=== PATIENT | male | born 1965 | race Caucasian/White ===

== ENCOUNTER 2021-05-28 10:05 | Inpatient (IN) | payer OTHER ==
[~2021-05-28] VITALS: Ht 185.4 cm; Wt 86.2 kg
--- NOTE | 2021-05-28 10:28 | NUR ---
PT NOTES REGULAR CHECKUP AT THE PCP SENT OVER FOR ELEVATED WBC. PT DENIES CP, SOB. PT NOTES DECREASE IN PO INTAKE SINCE THE FIRST May AND NOTES WHAT HE STATES BILATERAL KIDNEY PAIN SINCE THE FIRST May WELL. PT DENIES BLOOD IN URINE OR ANY URINARY S/S. PT DENIES PAST RENAL ISSUES. PT IS ALERT AND ORIENTED X4, AMBULATORY WITH STEADY GAIT, PT ROSARIO, PT SKIN PWD, VSS ON RA, CALL LIGHT ENCOURAGED TO USE
[2021-05-28 10:41] LABS: HEMATOCRIT 36.9 % (42.0-52.0); HEMOGLOBIN 12.3 gm/dL (14.0-18.0); MCH 32.6 pg (26.0-34.0); MCHC 33.4 g/dL (28.0-37.0); MCV 97.6 fL (80.0-100.0); PLATELET COUNT 718 thou/uL (150-400); RBC 3.78 mil/uL (4.50-6.00); RDW 13.9 % (10.5-14.5); WBC 26.4 thou/uL (4.0-11.0)
[2021-05-28 11:11] LABS: ALBUMIN 2.3 g/dL (3.4-5.0); CALCIUM 8.7 mg/dL (8.5-10.1); CREATININE 2.1 mg/dL (0.7-1.3); TOTAL BILIRUBIN 0.7 mg/dL (0.2-1.0); TOTAL PROTEIN 6.8 g/dL (6.4-8.2)
[2021-05-28 11:13] LABS: POTASSIUM 2.9 mmol/L (3.5-5.1)
[2021-05-28 11:35] LABS: MAGNESIUM 1.8 mg/dL (1.8-2.4)
[2021-05-28 11:53] LABS: URINE BILIRUBIN NEGATIVE (Negative); URINE BLOOD TRACE (Negative); URINE CLARITY CLEAR; URINE COLOR YELLOW; URINE GLUCOSE-RANDOM* NEGATIVE (Negative); URINE KETONES NEGATIVE (Negative); URINE LEUKOCYTES-REFLEX NEGATIVE (Negative); URINE NITRITE-REFLEX NEGATIVE (Negative); URINE PROTEIN (DIPSTICK) NEGATIVE (Negative); URINE UROBILINOGEN 0.2 E.U./dl (0.2-1.0)
[2021-05-28 11:57] LABS: ABSOLUTE NEUTROPHILS 22.7 thou/uL (1.4-8.2); PLATELET ESTIMATE NORMAL
[2021-05-28] MEDS ORDERED: DIAZEPAM 5 MG5 M1 PO (12:02)
[2021-05-28] MEDS ORDERED: COREG25 M1 PO (12:03)
[2021-05-28] MEDS ORDERED: ZESTRIL40 MG PO (12:04)
[2021-05-28] MEDS ORDERED: PERCOCET 5-3251 EACH PO (12:04)
[2021-05-28] MEDS ORDERED: DESYREL150 MG PO (12:04)
[2021-05-28] MEDS ORDERED: ATORVASTATIN CA80 MG PO (12:05)
[2021-05-28] MEDS ORDERED: ASA81BEC PO (12:05)
[2021-05-28] MEDS ORDERED: NORVASC10 MG PO (12:05)
[2021-05-28 12:46] VITALS: BP 137/81
[2021-05-28 13:08] VITALS: BP 144/78
--- NOTE | 2021-05-28 18:26 | NUR ---
PATIENT ADMITTED TO ROOM 358 FROM ED. PATIENT ABLE TO AMBULATE W/O ASSISTANCE TO BATHROOM THEN TO BED. NO C/O CHEST PAIN OR SHORTNESS OF BREATH. VSS. ADMIT COMPLETED. 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
--- NOTE | 2021-05-28 22:53 | NUR ---
PROGRESS PT A/O X4, VSS. REPORTING LOW BACK PAIN R/T SCIATICA STATES ITS A CHRONIC PROBLEM AND HE TAKES PAIN MEDICATION BEFORE BED TO HELP IM SLEEP COMFORTABLY. DR. HAMLIN NOTIFIED OF CONSULT STATED HE WOULD BE IN TO ASSESS PATIENT. TOLERATING PO FLUIDS IN ADEQUATE AMOUNTS. IV TO LAC INFUSING NORMAL SALINE WITHOUT DIFFICULTY. PT UP AD JUNI GAIT STADY A LOW FALL RISK AND PT USES CALL LIGHT APPROPRIATELY. ACCUCHECKS AND SSI CONTINUE WAS 141 AT HS AND NO SSI INDICATED. CONTINUE POC.
[2021-05-29 00:08] VITALS: BP 144/82
[2021-05-29 03:52] VITALS: BP 193/101
--- NOTE | 2021-05-29 05:00 | NUR ---
Pt is hypertensive this am. Gave hydralazine with good result. Low grade temp noted. Gave tylenol x1. Continue to monitor any changes.
[2021-05-29 05:21] LABS: HEMATOCRIT 34.4 % (42.0-52.0); HEMOGLOBIN 11.5 gm/dL (14.0-18.0); MCH 32.7 pg (26.0-34.0); MCHC 33.3 g/dL (28.0-37.0); MCV 98.2 fL (80.0-100.0); PLATELET COUNT 714 thou/uL (150-400); RBC 3.51 mil/uL (4.50-6.00); RDW 13.8 % (10.5-14.5); WBC 24.3 thou/uL (4.0-11.0)
[2021-05-29 05:40] LABS: ANION GAP 14 mmol/L (7-16); BUN 29 mg/dL (7-18); CHLORIDE 102 mmol/L (98-107); CO2 23 mmol/L (21-32); CREATININE 1.5 mg/dL (0.7-1.3); GLUCOSE 136 mg/dL (74-106); POTASSIUM 3.2 mmol/L (3.5-5.1); SODIUM 139 mmol/L (136-145)
[2021-05-29 05:50] LABS: MAGNESIUM 1.2 mg/dL (1.8-2.4); PHOSPHORUS 2.2 mg/dL (2.5-4.9); TROPONIN-I <0.06 ng/mL (<0.06)
[2021-05-29 05:56] VITALS: BP 154/81
[2021-05-29 07:27] VITALS: BP 147/77
--- NOTE | 2021-05-29 08:21 | HC ---
[facility] [place] [address] CONSULTATION Name: TARSHA RUSSELL Room #: 358- ADM IN M.R.#: [id number] Admission: 05/28/21 Attend Phys: Dorothea Tomas Discharge: Date of : 63 Report #: [id number] THIS REPORT FOR: cc: Timoteo Leonard MD, Christopher B. MD Barry, Joseph W. MD ~ DOC #: [id number] Earnest Meza MD DATE OF SERVICE: 05/28/2021 INFECTIOUS DISEASE CONSULTATION ATTENDING PHYSICIAN: Dorothea Tomas MD REASON FOR EVALUATION: Leukocytosis, renal failure and apparent pancreatitis. HISTORY OF PRESENT ILLNESS: Chart was reviewed and the patient examined. This is a 56-year-old gentleman with hypertension, who presented to the Emergency Room with complaints of low back pain and fatigue, his primary care physician evaluated including labs, which showed marked leukocytosis 30,000, repeat was 26,000 and thrombocytosis also had elevated creatinine 2.0, maintained up of 2.1. Urinalysis was otherwise unremarkable as was chest x-ray; however, CT abdomen and pelvis showed evidence of a markedly edematous pancreas with poor enhancement, question of developing pancreatic necrosis. CRP was elevated at 190.3. Sed rate of 97. Lactic acid initially 3.0, ____ has come down to 1.4. Interestingly, he denies any abdominal pain at this point. States he generally feels fairly well. No pulmonary complaints. His appetite has been somewhat diminished. Empirically started on therapy with Zosyn. ALLERGIES: None known. CURRENT MEDICATIONS: Aspirin, trazodone, Zosyn, carvedilol, hydrocodone, zolpidem, p.r.n. antiemetics. PAST MEDICAL HISTORY: As noted above, history of hypertension, diabetes mellitus, hyperlipidemia, anxiety, depression. SOCIAL HISTORY: Nonsmoker, no ethanol, no illicit drug use. FAMILY HISTORY: Noncontributory. REVIEW OF SYSTEMS: Otherwise, unremarkable. PHYSICAL EXAMINATION: GENERAL: He is alert, cooperative, mild distress. He is not toxic appearing. He is lucid. [facility] [address] [place] [address] CONSULTATION Name: TARSHA RUSSELL Room #: 358-P [facility] IN M.R.#: [id number] Admission: 05/28/21 Attend Phys: Dorothea Tomas Discharge: Date of : 63 Report #: [id number] VITAL SIGNS: Temperature 99.4, pulse ____, respirations 16, blood pressure 144/78. SKIN: Warm, dry, no rashes. HEENT: Normocephalic. Extraocular muscles intact. NECK: Supple. LUNGS: Clear to auscultation bilaterally. HEART: Regular. I do not appreciate a murmur. ABDOMEN: Mildly distended, although it is not firm. It is not tender. EXTREMITIES: There is no evident peritoneal signs. GENITOURINARY AND RECTAL: Deferred. LABORATORY DATA: Most recent lactic acid 1.4, down from 3.0 on admission. Electrolytes: Sodium 132, potassium 2.9, chloride 95, bicarbonate is 24, anion gap of 13, BUN and creatinine 40 and 2.1, glucose of 277, AST of 22, ALT of 40, total protein 6.8, albumin of 2.3. Procalcitonin 2.20. Urinalysis unremarkable. CBC: White count 26.4, H and H 12.3 and 36.9, platelets of 718, does have 19% bands. Chest x-ray: No acute process. ASSESSMENT AND PLAN: Marked leukocytosis and renal failure in the setting of what appears to be acute pancreatitis. It is not clear as to the etiology, presumably he could have gallstone in the past. We will continue empiric therapy with Zosyn with baseline lipase, this point he is not overtly toxic. I do not think there is anything additional imaging delgadillo that would help clarify, see how he does clinically in the next 24-48 hours. MD MARKO Valderrama/KATHI/ULYSSES <ELECTRONICALLY SIGNED> By: Earnest Meza MD 05/29/21 0821 [id number] [id number] Earnest Meza MD /nt
[2021-05-29 08:45] LABS: ABSOLUTE NEUTROPHILS 21.1 thou/uL (1.4-8.2); LARGE PLATELETS OCCASIONAL
[2021-05-29 09:38] LABS: CHOLESTEROL 91 mg/dL (<200); HDL CHOLESTEROL 24 mg/dL (>40); LDL CHOLESTEROL 49 mg/dL (<100); TC:HDL 3.8 Ratio (Not establshd); TRIGLYCERIDE 91 mg/dL (<150); VLDL 18 mg/dL (<40)
--- NOTE | 2021-05-29 15:12 | NUR ---
INITIAL ASSESSMENT: SW reviewed chart and spoke with nursing and attending physician. Pt was admitted from home due to pancreatitis. Pt is on IV abx. GI consulted. Pt may be ready for discharge over the weekend. SW met with pt at bedside. Introduced role of SW. Pt is alert/orientated x 4. Pt reports he lives at home with his father. Prior to admission, pt was independent with ADLs. No use of DME. No hx of HH or post-acute placement. Pt's PCP is Dr. Marquis Leonard. SW confirmed that pt does not have health insurance. Pt states he will likely be able to pay for his hospital stay as private pay. SW explained that referral has been made to [facility] for financial assistance if needed. Pt verbalized understanding. Pt will have transportation home when discharged. No discharge needs identified at this time. [facility] is following to assist as needed with discharge planning.
[2021-05-29 15:18] VITALS: BP 166/85
--- NOTE | 2021-05-29 18:37 | NUR ---
PT A/O X4, FORGETFUL AT TIMES. PT RESTING WITH LIGHTS AND SHADES DIMMED MOST OF THE DAY. STATES "I CAN HIDE THIS WAY" PT WITH FLAT AFFECT MOST OF DAY. PRN PAIN MEDS GIVEN FOR CHRONIC BACK PAIN. PT DID STATE HE TOOK ONE OF HIS OWN OXYCODONE PILLS THIS AFTERNOON. PT MEDS TAKEN TO PHARMACY ONCE BELONGINGS WERE SEARCHED AGAIN BY THIS RN WITH PT CONSENT. PT ON FULL LIQUIDS, TOLERATING WELL. PLAN FOR ABD US TOMORROW PER GI NOTE. WILL CONT TO MONITOR AND FOLLOW POC.
[2021-05-29 19:47] VITALS: BP 146/75
[2021-05-30 05:41] LABS: HEMATOCRIT 33.4 % (42.0-52.0); HEMOGLOBIN 11.3 gm/dL (14.0-18.0); MCH 33.3 pg (26.0-34.0); RBC 3.41 mil/uL (4.50-6.00); RDW 13.9 % (10.5-14.5)
[2021-05-30 06:02] LABS: ALBUMIN 2.1 g/dL (3.4-5.0); CALCIUM 8.5 mg/dL (8.5-10.1); CREATININE 1.2 mg/dL (0.7-1.3); MAGNESIUM 1.3 mg/dL (1.8-2.4); POTASSIUM 3.2 mmol/L (3.5-5.1); TOTAL BILIRUBIN 0.6 mg/dL (0.2-1.0); TOTAL PROTEIN 6.1 g/dL (6.4-8.2)
--- NOTE | 2021-05-30 08:02 | NUR ---
PROGRESS PT A/O X4, VSS, UP AD JUNI, VOIDING PER URINAL CLEAR YELLOW URINE IN ADEQUATE AMOUNTS. REPORTS CHRONIC BACK PAIN RATES IT A 5 TO 10 TAKING HYDROCODONE WITH EFFECT PT SLEEPS AFTER. PULLED OUT HIS IV AT 230 AM ORDER OBTAINED TO LEAVE OUT PT WAS RELUCTANT TO LET ME RESTART HE THINKS HE IS DISCHARGING HOME TODAY.
[2021-05-30 08:23] VITALS: BP 205/103
[2021-05-30 16:07] VITALS: BP 156/74
--- NOTE | 2021-05-30 18:02 | NUR ---
ASSUMED PATIENT CARE AT 0700. A/O X4. C/O BACK PAIN. REST ON BED ALL DAY. NO DISTRESS NOTED. SLOWLY TOWARDS POC GOALS.
[2021-05-30 19:21] VITALS: BP 132/65
--- NOTE | 2021-05-30 21:56 | NUR ---
PT ASLEEP EASILY AWAKENED FOR ASSESSMENT AND MEDS. PT DECLINED HS SNACK. IVF INTACT. PALE SKIN TONE. ABD FIRM DISTENDED. PT USING URINAL.
[2021-05-31 04:02] VITALS: BP 188/97
[2021-05-31 06:29] VITALS: BP 154/66
[2021-05-31 07:23] VITALS: BP 144/64
[2021-05-31 10:59] LABS: ABSOLUTE NEUTROPHILS 13.7 thou/uL (1.4-8.2); BASOPHILS 0.4 % (0.0-2.0); EOSINOPHILS 0.6 % (0.0-3.0); HEMATOCRIT 34.3 % (42.0-52.0); HEMOGLOBIN 11.9 gm/dL (14.0-18.0); LYMPHOCYTES 6.4 % (24.0-44.0); MCH 33.6 pg (26.0-34.0); MCHC 34.7 g/dL (28.0-37.0); MCV 96.7 fL (80.0-100.0); MONOCYTES 10.3 % (1.0-8.0); POLYS 82.3 % (36.0-66.0); RBC 3.55 mil/uL (4.50-6.00); RDW 13.7 % (10.5-14.5); WBC 16.6 thou/uL (4.0-11.0)
[2021-05-31 11:13] LABS: PLATELET COUNT 639 thou/uL (150-400)
--- NOTE | 2021-05-31 14:28 | NUR ---
ASSUMED PATIENT CARE AT 0700. A/O X4. UP AD JUNI. BACK PAIN, TRANSFER TO 453 NOW,
--- NOTE | 2021-05-31 15:42 | NUR ---
ASSUMED PT CARE UPON TRANSFER TO UNIT AROUND 1445. PATIENT A&OX4, ABLE TO MAKE NEEDS KNOWN. ORIENTED PATIENT TO ROOM AND CALL LIGHT WITHIN REACH. PATIENT REPORTS UNDERSTANDING.
[2021-05-31 16:52] VITALS: BP 151/83
[2021-05-31 20:39] VITALS: BP 143/60
--- NOTE | 2021-06-01 05:35 | NUR ---
Assumed pt care at 1900. A/OX4,VSS. Up ad liborio w/o problems. Declined taking his HS Trazadone stating he doesn't need it tonight. C/o back pain,medicated per EMAR with relief reported. Supposed to get an MRI [place] [facility] which he states he don't want to get done since he had one recently done and will obtain records,will pass onto oncoming nurse. Resting quietly without distress noted.
[2021-06-01 06:26] LABS: HEMATOCRIT 33.5 % (42.0-52.0); HEMOGLOBIN 11.2 gm/dL (14.0-18.0); MCH 32.6 pg (26.0-34.0); MCHC 33.4 g/dL (28.0-37.0); MCV 97.4 fL (80.0-100.0); RBC 3.44 mil/uL (4.50-6.00); RDW 13.7 % (10.5-14.5); WBC 14.6 thou/uL (4.0-11.0)
[2021-06-01 06:55] LABS: ALBUMIN 2.2 g/dL (3.4-5.0); CALCIUM 8.3 mg/dL (8.5-10.1); CREATININE 1.3 mg/dL (0.7-1.3); POTASSIUM 3.4 mmol/L (3.5-5.1); TOTAL BILIRUBIN 0.4 mg/dL (0.2-1.0); TOTAL PROTEIN 6.2 g/dL (6.4-8.2)
[2021-06-01 07:25] VITALS: BP 155/82
[2021-06-01] MEDS ORDERED: AMOX TR-K CLV1 EAC4 PO (09:23)
[2021-06-01 09:29] VITALS: BP 155/82
--- NOTE | 2021-06-01 09:54 | NUR ---
Assumed care of pt at 0700. Pt a&ox4. Back pain controlled with prn pain meds. Pt refuses MRI this am, states he has already had it done as an outpatient. Provider notified. Up ad liborio. Pt discharging home today. Call light within reach. Will continue to monitor.
--- NOTE | 2021-06-01 13:22 | NUR ---
CARE TEAM INDICATED THAT PT IS MEDICALLY STABLE TO DC HOME THIS DAY. CM FOLLOWED UP WITH PT AND PROVIDED HUM THE NUMBER FOR THE [facility]. PT HAS TRANSPROT HOME THIS DAY. NO OTHER CM INTERVENTION INDICATED. CASE CLOSED.
[2021-06-01 19:08] LABS: IgG 698 mg/dL (603-1613)
== END 2021-06-01 14:24 | disposition home or self-care (01) | DRG 871 ==
LOC: ER 10:05 → EROBS 12:27 → 3W 12:45 → 4W 05-31 14:36
PROVIDERS: Emergency Medicine; Nurse Practitioner; Specialist; ADMIT Hospitalist; ATTEND Hospitalist
DX: A41.9 Sepsis, unspecified organism (principal); K85.90 Acute pancreatitis without necrosis or infection, unspecified; N17.9 Acute kidney failure, unspecified; E86.0 Dehydration; E87.6 Hypokalemia; R74.02 Elevation of levels of lactic acid dehydrogenase [LDH]; I10 Essential (primary) hypertension; E11.9 Type 2 diabetes mellitus without complications; E78.5 Hyperlipidemia, unspecified; F41.9 Anxiety disorder, unspecified; F32.9 Major depressive disorder, single episode, unspecified; Z20.822 Contact with and (suspected) exposure to COVID-19; Z79.82 Long term (current) use of aspirin; Z79.899 Other long term (current) drug therapy
CPT/HCPCS: 10040; 10080